=== PATIENT | female | born 1975 ===

== ENCOUNTER → 2020-08-13 | Outpatient (CLI) | payer BC ==
[2020-08-13 22:15] LABS: Candida species (DNA Probe) Positive (NEGATIVE); G. vaginalis (DNA Probe) Positive (NEGATIVE); T. vaginalis (DNA Probe) Negative (NEGATIVE)
== END | disposition home or self-care (01) ==
LOC: LAB 17:42 → LAB SHORT 17:42
PROVIDERS: Nurse Practitioner
DX: L29.3 Anogenital pruritus, unspecified (principal)
CPT/HCPCS: 87480; 87510; 87660

== ENCOUNTER → 2020-09-17 | Outpatient (CLI) | payer BC ==
[2020-09-18 16:10] LABS: HPV 16 Negative (Negative); HPV 18 Negative (Negative); HPV OTHER HR TYPES Negative (Negative)
== END ==
LOC: LAB SHORT 15:10 → LAB UCHC 15:10
PROVIDERS: Registered Nurse Community Health
DX: Z01.419 Encounter for gynecological examination (general) (routine) without abnormal findings (principal); N89.8 Other specified noninflammatory disorders of vagina
CPT/HCPCS: 87070; 87205; 87624; G0123

== ENCOUNTER → 2023-04-17 | Outpatient (CLI) | payer OTHER ==
[2023-04-17 17:18] LABS: BASOPHILS ABSOLUTE AUTO 0.06 K/mm3 (0.00-0.23); BASOPHILS PERCENT AUTO 1 % (0-2); EOSINOPHILS PERCENT AUTO 0 % (0-6); Hematocrit 36.6 % (33.0-51.0); Hemoglobin 12.9 g/dL (11.5-16.0); IMMATURE GRAN ABSOLUTE AUTO 0.02 K/mm3 (0.00-0.10); IMMATURE GRAN PERCENT AUTO 0 % (0-1); LYMPHOCYTES PERCENT AUTO 28 % (21-46); MONOCYTES ABSOLUTE AUTO 0.61 K/mm3 (0.16-1.47); MONOCYTES PERCENT AUTO 6 % (4-13); Mean Corpuscular HGB 29.9 pg (26.0-34.0); Mean Corpuscular HGB Conc 35.2 g/dL (31.5-36.5); Mean Corpuscular Volume 85 fL (80-100); Mean Platelet Volume 11.4 fL (9.1-12.4); NEUTROPHILS ABSOLUTE AUTO 6.41 K/mm3 (1.96-9.15); NEUTROPHILS PERCENT AUTO 65 % (41-73); Platelet Count 254 K/mm3 (150-400); RDW Coefficient Variation 13.1 % (11.7-14.2); RDW Standard Deviation 40.2 fL (35.1-46.3); Red Blood Cell Count 4.31 M/mm3 (3.80-5.20)
[2023-04-17 17:26] LABS: Bun/Creatinine Ratio 15.3 (12.0-20.0); Calcium, Blood 9.2 mg/dL (8.5-10.1); Creatinine, Blood 0.72 mg/dL (0.40-1.00); Potassium, Blood 3.7 mmol/L (3.5-5.5)
== END ==
LOC: LAB SHORT 17:15 → LAB 17:15
PROVIDERS: Physician Assistant Surgical
DX: R55 Syncope and collapse (principal)
CPT/HCPCS: 80048; 85025

== ENCOUNTER → 2024-01-09 | Outpatient (CLI) | payer OTHER ==
[2024-01-09 14:49] LABS: CHOL/HDL RATIO 5.1; Cholesterol 190 mg/dL (50-200); HDL Cholesterol 37 mg/dL (>39); LDL/HDL RATIO 3.4; Low Density Lipoprotein Chol 125 mg/dL (0-110); Triglycerides 141 mg/dL (30-160); Very Low Density Lipoprot Chol 28 mg/dL (6-32)
[2024-01-11 18:06] LABS: A/G RATIO 1.4 (1.2-2.2); BILIRUBIN, TOTAL 0.3 mg/dL (0.0-1.2); CALCIUM, SERUM 9.2 mg/dL (8.7-10.2); CREATININE, SERUM 0.6 mg/dL (0.57-1.00); GLOBULIN, TOTAL 2.9 g/dL (1.5-4.5); POTASSIUM, SERUM 4.4 mmol/L (3.5-5.2); PROTEIN, TOTAL, SERUM 7.1 g/dL (6.0-8.5)
== END ==
LOC: LAB SHORT 12:52 → LAB 12:52
PROVIDERS: Student in an Organized Health Care Education/Training Program
DX: E11.9 Type 2 diabetes mellitus without complications (principal); E55.9 Vitamin D deficiency, unspecified
CPT/HCPCS: 80053; 80061; 82043; 82306

== ENCOUNTER → 2024-07-20 | Outpatient (CLI) | payer OTHER ==
[2024-08-03 12:02] LABS: HPV HIGH RISK BY TMA Not Detected; HPV SOURCE Vaginal
== END ==
LOC: LAB 17:13 → LAB SHORT 17:13
PROVIDERS: Family Medicine
DX: Z01.419 Encounter for gynecological examination (general) (routine) without abnormal findings (principal)
CPT/HCPCS: 87624; G0123